=== PATIENT | female | born 1965 | race Caucasian/White ===

== ENCOUNTER 2022-01-13 08:20 | Observation (INO) ==
--- NOTE | 2022-01-13 08:50 | CT Scan Report ---
CT head/brain wo con CLINICAL HISTORY: 56 years-old Female with Stroke Alert. Acute strokelike symptoms TECHNIQUE: Multiple axial CT images of the head were obtained without contrast. A dose lowering tech nique was utilized adhering to the principles of ALARA. CT DOSE: 537.48 mGy.cm COMPARISON: Head CT 01/27/2008 FINDINGS: No acute intracranial hemorrhage, midline shift, intracranial mass, hydrocephalus, territorial ischem ia or abnormal extra-axial collection. Cerebral vascular calcifications. The calvarium is intact. The paranasal sinuses, mastoid air cells, and middle ear cavities are clear . IMPRESSION: No acute intracranial abnormality. ACT 112: Negative or not required by law. The above report was generated using voice recognition software. It may contain grammatical, syntax o r spelling errors. Electronically signed by: Klaus Coyne M.D. 01/13/2022 8:49 AM
[2022-01-13] MEDS ORDERED: OPTIRAY 320 125ml IV ONE (08:51)
[2022-01-13 09:13] LABS: Hematocrit (blood only) 37.3 % (37-47); Hemoglobin 12.4 g/dL (12.0-16.0); Mean Corpuscular Hemoglobin 30.2 pg (25-34); Mean Corpuscular Hgb Conc 33.2 g/dL (32-36); Mean Platelet Volume 10.7 fL (7.4-10.4); Platelet Count 253 K/uL (130-400); RDW Coefficient of Variation 13.8 % (11.5-14.5); RDW Standard Deviation 45.9 fL (36.4-46.3); White Blood Count 8.41 K/uL (4.8-10.8)
--- NOTE | 2022-01-13 09:16 | Emergency Department Note ---
Impression & Plan Left sided numbness, Stroke-like symptoms, Left arm weakness, Blurry vision ED Provider Note NAME: EZIO JAIME AGE: 56 SEX: F : 1965 ARRIVES VIA: Walk-In INFORMANT: [Patient][] ED PROVIDER(S): [Abimael Lizarraga MD] Patient first seen by me at 8:35 AM. CHIEF COMPLAINT: Stroke symptoms HISTORY OF PRESENT ILLNESS: The patient is a 56-year-old female who presents to the ED with complaints of strokelike symptoms. The patient was fine last night except for some charley horse cramping that she has had over the last few months. This morning, at around 6:30 AM, just over 2 hours ago, she noticed that her left eye vision was blurry when she tried to read. The patient did not notice any issues with her vision when she first woke up--the visual issue started a bit later in the morning. Nothing else bothered her. She felt her contact might be the issue. The patient went to work and around 65 minutes ago while sitting at her desk, she felt a popping sensation in her left ear and left eye. Her left eye vision went to 0 and then seemed to come back. Her left face, left arm and left leg felt weak and numb. She presents with her for evaluation. The patient believes that her symptoms involving the left face and left side of her body began at around 7:40 AM. There is no chest pain or shortness of breath. There is no abdominal pain. No headache or neck pain. The patient has never had a stroke. The patient has a history of high blood pressure and high cholesterol. She does take aspirin. No blood thinning medications. REVIEW OF SYSTEMS: See HPI for pertinent positives and negatives. A total of ten systems were reviewed and were otherwise negative. PMHx/PSHx: See Below SOCIAL HISTORY: See Below. PHYSICAL EXAM: GENERAL: Patient is in no acute distress. HEENT: No acute trauma, normocephalic atraumatic, mucous membranes moist, no nasal congestion, no scleral icterus. NECK: No stridor, no adenopathy, no meningismus, trachea is midline. LUNGS: Clear to auscultation bilaterally, no wheeze, no rhonchi, breath sounds equal. HEART: Without murmurs gallops or rubs, regular rate and rhythm. ABDOMEN: Soft, nontender, bowel sounds positive, no hernias, no peritonitis. EXTREMITIES: No cyanosis or edema, full range of motion of all the joints without pain or difficulty, no signs for acute trauma. NEUROLOGIC: Oriented x 3. There is no facial droop or speech slur. The patient's left hand grasp is weak. She has a difficult time lifting her left arm but, there is no left arm drift, no left leg drift. No cerebellar dysfunction. SKIN: No rash, no jaundice, no diaphoresis. DIFFERENTIAL DIAGNOSIS: Infection, dehydration, metabolic abnormality, hypo/hyperglycemia, electrolyte disturbance, anemia, hypoxia, cardiac sources, intracerebral event, toxicologic issues, stroke, TIA, as well as other pathologies. EMERGENCY DEPARTMENT COURSE/PROCEDURES: ECG: Indication was possible stroke. The ECG shows a normal sinus rhythm with a rate of 72. There is diffuse artifact. There is no ST elevation, no PVCs. The QTc is 451. Continuous Cardiac Monitoring: An order was placed for continuous cardiac monitoring. The monitor shows a rate of 77 with normal sinus rhythm. Critical Care Note: I have personally spent 46 minutes of critical care time in the direct management of this patient. This includes bedside care, interpretation of diagnostic studies, and testing, discussion with consultants, patient, and family members, and other required patient management activities. This 46 minutes is in excess of all separately billable procedures. MEDICAL DECISION MAKING: There is no leukocytosis or concerning anemia. There is a normal platelet count. No coagulopathy. No renal failure, no significant electrolyte abnormality. No concerning liver enzyme elevation. COVID test returned negative. Brain CT showed no acute bleed or mass-effect. CT angio of the head and neck were performed, no stenosis or clot seen. On exam, the patient's left hand grasp was weak. There was no arm drift, no speech slur or facial droop. Stroke scale as per nursing staff was 0. A stroke alert was called given her presentation and complaints. The patient was seen by the stroke neurologist. TNK was discussed but, the patient ultimately refused the medication. The patient does feel like she is improving. She has more strength in her left upper extremity. The left sided numbness is improving. As per the stroke neurologist recommendations, the patient was given 300 mg of oral Plavix. An MRI of the brain was ordered. The MRI did not show any acute findings, no findings of stroke. The cause for the patient's presentation is unclear. A small stroke is still must be considered. Sometimes, MRI findings show up days later. I spoke to the patient about her work-up and results, I did speak with the welfare case worker. The patient is in need of a hospital stay. The on-call hospitalist was consulted. Past Med/Surg History Medical History (Updated 01/13/22 @ 16:03 by Abimael Lizarraga MD) CAD (coronary artery disease) HLD (hyperlipidemia) HTN (hypertension) Hypothyroidism Surgical History History of History of colposcopy with cervical biopsy History of tonsillectomy and adenoidectomy Family History Grandmother , 90s, but had NH in her 40s Myocardial infarction Father Colon cancer Other HLD (hyperlipidemia) Social History Smoking Status: Former smoker Tobacco Type: Cigarettes Cigarettes Per Day: 5-6 cigarettes; Second Hand Exposure: No; Do You Dip or Chew Tobacco: No; Tobacco Cessation Education Requested by Patient: No Hx Alcohol Use: No Hx Substance Use: No Preferred Language: Sudanese Communication Ability: Effective Gear Technician Required: No Beliefs That Will Affect Care: None Current Living Situation: Family current occupational status: employed Other Information That Helps Us Care for You: No Feels Safe at Home: Yes Safety Concerns: Feels Safe At This Time Assistive Devices: None Allergies Allergies Allergy/AdvReac Type Severity Reaction Status Date / Time latex Allergy Severe swelling Verified 01/13/22 10:31 where ever it touches her codeine Allergy Mild UNKNOWN Verified 01/13/22 10:31 metoprolol Allergy Unknown Fluttering, Verified 01/13/22 10:31 slow respirations, dizziness and dry heaves. oxytocin Allergy Unknown Verified 01/13/22 10:31 Penicillins Allergy Unknown Verified 01/13/22 10:32 Sulfa (Sulfonamide Allergy Unknown . Verified 01/13/22 10:31 Antibiotics) ALL GENERIC MEDS Allergy Unknown LIPS Uncoded 01/13/22 10:31 TONGUE EDEMA Home Meds Home Medications Medication Instructions Recorded Confirmed isosorbide mononitrate 60 mg 60 mg PO QAM 07/19/18 01/13/22 tablet,extended release 24 hr levothyroxine 100 mcg tablet 100 mcg PO QAM 07/19/18 01/13/22 metoprolol succinate 25 mg 25 mg PO DAILY@1500 07/19/18 01/13/22 tablet,extended release 24 hr potassium chloride 10 mEq 30 meq PO DAILY@1500 07/19/18 01/13/22 capsule,extended release triamterene 37.5 1 cap PO DAILY 07/19/18 01/13/22 mg-hydrochlorothiazide 25 mg capsule aspirin 81 mg chewable tablet 162 mg PO DAILY 01/13/22 01/13/22 rosuvastatin 5 mg tablet 20 mg PO DAILY 01/13/22 01/13/22 tamoxifen 20 mg tablet 20 mg PO DAILY@199901/13/22 01/13/22 Results & Data (ED) Vital Signs Vital Signs - 24 hr 01/13/22 08:30 01/13/22 09:00 01/13/22 09:15 Temperature 36.6 C Temperature Source Temporal Artery Scan Pulse Rate 77 78 Pulse Rate [Apical] Pulse Rate from SpO2 Sensor 78 Respiratory Rate 18 20 Respiratory Effort / Characteristics Respiratory Depth Blood Pressure 167/109 H 150/101 H Blood Pressure [Left Arm] Blood Pressure Mean 128 117 Blood Pressure Mean [Left Arm] Pulse Oximetry 98 96 Oxygen Delivery Method Room Air Room Air Sepsis Recent Fever Within 48 Hours No Sepsis New/Unexplained Change in Mental Status No Sepsis Action Taken by Nursing No Action Required 01/13/22 09:30 01/13/22 09:45 01/13/22 09:50 Temperature Temperature Source Pulse Rate 74 72 77 Pulse Rate [Apical] Pulse Rate from SpO2 Sensor 74 74 79 Respiratory Rate 13 19 17 Respiratory Effort / Characteristics Respiratory Depth Blood Pressure 146/100 H Blood Pressure [Left Arm] Blood Pressure Mean 115 Blood Pressure Mean [Left Arm] Pulse Oximetry 95 96 95 Oxygen Delivery Method Room Air Sepsis Recent Fever Within 48 Hours Sepsis New/Unexplained Change in Mental Status Sepsis Action Taken by Nursing 01/13/22 09:59 01/13/22 10:00 01/13/22 10:10 Temperature Temperature Source Pulse Rate 73 74 70 Pulse Rate [Apical] 72 Pulse Rate from SpO2 Sensor 73 71 70 Respiratory Rate 18 18 20 Respiratory Effort / Characteristics Non-Labored Respiratory Depth Normal Blood Pressure 133/89 119/82 Blood Pressure [Left Arm] 133/89 Blood Pressure Mean 103 94 Blood Pressure Mean [Left Arm] 103 Pulse Oximetry 97 96 96 Oxygen Delivery Method Room Air Sepsis Recent Fever Within 48 Hours Sepsis New/Unexplained Change in Mental Status Sepsis Action Taken by Shelter Medications Current Medication List: was personally reviewed by me Laboratory Data Attestation: I reviewed the patient's lab results. Result diagrams: 01/13/22 09:00 01/13/22 09:00 Lab Results 01/13/22 01/13/22 01/13/22 Range/Units 09:00 09:00 09:00 WBC 8.41 (4.8-10.8) K/uL RBC 4.10 L (4.2-5.4) M/uL Hgb 12.4 (12.0-16.0) g/dL Hct 37.3 (37-47) % MCV 91.0 (80-100) fL MCH 30.2 (25-34) pg MCHC 33.2 (32-36) g/dL RDW Std Deviation 45.9 (36.4-46.3) fL RDW Coeff of Ted 13.8 (11.5-14.5) % Plt Count 253 (130-400) K/uL MPV 10.7 H (7.4-10.4) fL PT 10.9 (9.0-12.0) Seconds INR 1.0 (0.9-1.1) APTT 24.7 (21.0-31.0) Seconds PTT Ratio 0.9 Sodium 137 (136-145) mmol/L Potassium 3.9 (3.5-5.1) mmol/L Chloride 103 (98-107) mmol/L Carbon Dioxide 27 (21-32) mmol/L Anion Gap 7 (3-11) BUN 13 (6-23) mg/dl Creatinine 0.79 (0.6-1.2) mg/dl Est Cr Clr Drug Dosing 107.6 ml/min Est GFR ( Amer) 97.7 ml/min Est GFR (Non-Af Amer) 84.3 ml/min BUN/Creatinine Ratio 16.5 (10-20) Glucose 104 H (70-99(Fasting)) mg/dl Calcium 8.8 (8.5-10.1) mg/dl Magnesium 1.9 (1.7-2.4) mg/dl Total Bilirubin 0.4 (0.2-1.0) mg/dl AST 38 (13-39) U/L ALT 35 (7-52) U/L Alkaline Phosphatase 61 (34-104) U/L Total Protein 6.6 (6.0-8.3) gm/dl Albumin 3.5 (3.4-5.0) gm/dl Globulin 3.1 (2.5-4.0) gm/dl Albumin/Globulin Ratio 1.1 (0.9-2) SARS-CoV-2, RNA, NAAT (NEGATIVE) 01/13/22 Range/Units 09:08 WBC (4.8-10.8) K/uL RBC (4.2-5.4) M/uL Hgb (12.0-16.0) g/dL Hct (37-47) % MCV (80-100) fL MCH (25-34) pg MCHC (32-36) g/dL RDW Std Deviation (36.4-46.3) fL RDW Coeff of Ted (11.5-14.5) % Plt Count (130-400) K/uL MPV (7.4-10.4) fL PT (9.0-12.0) Seconds INR (0.9-1.1) APTT (21.0-31.0) Seconds PTT Ratio Sodium (136-145) mmol/L Potassium (3.5-5.1) mmol/L Chloride (98-107) mmol/L Carbon Dioxide (21-32) mmol/L Anion Gap (3-11) BUN (6-23) mg/dl Creatinine (0.6-1.2) mg/dl Est Cr Clr Drug Dosing ml/min Est GFR ( Amer) ml/min Est GFR (Non-Af Amer) ml/min BUN/Creatinine Ratio (10-20) Glucose (70-99(Fasting)) mg/dl Calcium (8.5-10.1) mg/dl Magnesium (1.7-2.4) mg/dl Total Bilirubin (0.2-1.0) mg/dl AST (13-39) U/L ALT (7-52) U/L Alkaline Phosphatase (34-104) U/L Total Protein (6.0-8.3) gm/dl Albumin (3.4-5.0) gm/dl Globulin (2.5-4.0) gm/dl Albumin/Globulin Ratio (0.9-2) SARS-CoV-2, RNA, NAAT NEGATIVE (NEGATIVE) Administered Medications Discontinued Medications Clopidogrel Bisulfate (Clopidogrel Bisulfate 300 Mg Tab) 300 mg PO NOW STA Stop: 01/13/22 10:00 Last Admin: 01/13/22 11:12 Dose: 300 mg Documented by: [id number] Ioversol (Optiray 320 125ml) 120 ml IV ONCE ONE Stop: 01/13/22 08:52 Last Admin: 01/13/22 08:52 Dose: 120 ml Documented by: [id number] Imaging Data Radiologist's Impression: Head CT 01/13/22 08:36 CT head/brain wo con CLINICAL HISTORY: 56 years-old Female with Stroke Alert. Acute strokelike symptoms TECHNIQUE: Multiple axial CT images of the head were obtained without contrast. A dose lowering technique was utilized adhering to the principles of ALARA. CT DOSE: 537.48 mGy.cm COMPARISON: Head CT 01/27/2008 FINDINGS: No acute intracranial hemorrhage, midline shift, intracranial mass, hydrocephalus, territorial ischemia or abnormal extra-axial collection. Cerebral vascular calcifications. The calvarium is intact. The paranasal sinuses, mastoid air cells, and middle ear cavities are clear. IMPRESSION: No acute intracranial abnormality. ACT 112: Negative or not required by law. The above report was generated using voice recognition software. It may contain grammatical, syntax or spelling errors. Electronically signed by: Klaus Coyne M.D. 01/13/2022 8:49 AM Head CTA 01/13/22 08:40 CT angio neck with con, CT angio head w con CLINICAL HISTORY: 56 years-old Female with stroke. Acute strokelike symptoms COMPARISON STUDY: Head CT of same day TECHNIQUE: Following the IV administration of 120 mL of Optiray, CT angiogram of the head and neck was performed from the aortic arch to the skull apex. Images are reviewed in the axial, sagittal, and coronal planes. 3-D MIPS images are created and assessed. IV contrast was administered without complication. All measurements were calculated based on NASCET criteria. A dose lowering technique was utilized adhering to the principles of ALARA. CT DOSE: 616.54 mGy.cm FINDINGS: Three-vessel morphology of the thoracic aortic arch. Patency of the innominate and imaged subclavian arteries. The common carotid arteries appear normal. The internal carotid arteries are patent. There is minimal atherosclerotic plaque of the cavernous and supraclinoid segments without significant stenosis. The anterior and middle cerebral arteries are patent. There is mild luminal narrowing in a right proximal M2 branch within the sylvian fissure on image 115 of series 3. The vertebral arteries are patent with mild atherosclerosis within the V4 segments. The basilar and posterior cerebral arteries are patent. The cerebral venous sinuses are patent. There is no abnormal intracranial enhancement. The lung apices are clear. No pneumothorax. Unremarkable soft tissues. No acute fracture. Degenerative changes of the cervical spine. IMPRESSION:Unremarkable CTA of the head and neck. ACT 112: Negative or not required by law. The above report was generated using voice recognition software. It may contain grammatical, syntax or spelling errors. Electronically signed by: Klaus Coyne M.D. 01/13/2022 9:27 AM Neck CTA 01/13/22 08:40 CT angio neck with con, CT angio head w con CLINICAL HISTORY: 56 years-old Female with stroke. Acute strokelike symptoms COMPARISON STUDY: Head CT of same day TECHNIQUE: Following the IV administration of 120 mL of Optiray, CT angiogram of the head and neck was performed from the aortic arch to the skull apex. Images are reviewed in the axial, sagittal, and coronal planes. 3-D MIPS images are created and assessed. IV contrast was administered without complication. All measurements were calculated based on NASCET criteria. A dose lowering technique was utilized adhering to the principles of ALARA. CT DOSE: 616.54 mGy.cm FINDINGS: Three-vessel morphology of the thoracic aortic arch. Patency of the innominate and imaged subclavian arteries. The common carotid arteries appear normal. The internal carotid arteries are patent. There is minimal atherosclerotic plaque of the cavernous and supraclinoid segments without significant stenosis. The anterior and middle cerebral arteries are patent. There is mild luminal narrowing in a right proximal M2 branch within the sylvian fissure on image 115 of series 3. The vertebral arteries are patent with mild atherosclerosis within the V4 segments. The basilar and posterior cerebral arteries are patent. The cerebral venous sinuses are patent. There is no abnormal intracranial enhancem ent. The lung apices are clear. No pneumothorax. Unremarkable soft tissues. No acute fracture. Degenerative changes of the cervical spine. IMPRESSION:Unremarkable CTA of the head and neck. ACT 112: Negative or not required by law. The above report was generated using voice recognition software. It may contain grammatical, syntax or spelling errors. Electronically signed by: Klaus Coyne M.D. 01/13/2022 9:27 AM Brain MRI 01/13/22 09:59 MRI OF THE BRAIN WITHOUT CONTRAST CLINICAL HISTORY: Stroke symptoms. COMPARISON STUDY: Head CT and CTA of the head performed earlier today. TECHNIQUE: Utilizing a 1.5 Chrissy magnet and dedicated coil, multiplanar, multiecho imaging of the brain was performed without IV contrast. FINDINGS: There are no foci of restricted diffusion to suggest acute infarct. No acute intracranial midline shift or mass effect is present. Brain findings normal. Ventricular system is normal. Basal cisterns are patent. There are no extra-axial collections. A few small white matter T2 hyperintense foci are noted. No intracranial masses identified on this unenhanced exam. Orbits are unremarkable on this unenhanced study. No evidence for sinusitis. There is no mastoid fluid. IMPRESSION: No acute intracranial findings. ACT 112: Negative or not required by law. Electronically signed by: Julian Abernathy M.D. 01/13/2022 11:03 AM Discharge Plan Visit Data Chief Complaint: Neuro Symptoms/Deficit Stated Complaint: RT SIDE FEELS "WEIRD" ED Provider: Abimael Lizarraga Discharge Problem: Left sided numbness, Stroke-like symptoms, Left arm weakness, Blurry vision Patient Disposition: Admitted As Inpatient Condition: Fair Discharge Instructions Interventions: ED Discharge Assessment Last Done: 01/13/22 11:44
[2022-01-13 09:23] LABS: Partial Thromboplastin Ratio 0.9; Partial Thromboplastin Time 24.7 Seconds (21.0-31.0); Prothrombin Time 10.9 Seconds (9.0-12.0)
--- NOTE | 2022-01-13 09:29 | CT Scan Report ---
CT angio neck with con, CT angio head w con CLINICAL HISTORY: 56 years-old Female with stroke. Acute strokelike symptoms COMPARISON STUDY: Head CT of same day TECHNIQUE: Following the IV administration of 120 mL of Optiray, CT angiogram of the head and neck wa s performed from the aortic arch to the skull apex. Images are reviewed in the axial, sagittal, and c oronal planes. 3-D MIPS images are created and assessed. IV contrast was administered without complic ation. All measurements were calculated based on NASCET criteria. A dose lowering technique was util ized adhering to the principles of ALARA. CT DOSE: 616.54 mGy.cm FINDINGS: Three-vessel morphology of the thoracic aortic arch. Patency of the innominate and imaged subclavian arteries. The common carotid arteries appear normal. The internal carotid arteries are patent. There is minimal atherosclerotic plaque of the cavernous and supraclinoid segments without significant sten osis. The anterior and middle cerebral arteries are patent. There is mild luminal narrowing in a righ t proximal M2 branch within the sylvian fissure on image 115 of series 3. The vertebral arteries are patent with mild atherosclerosis within the V4 segments. The basilar and posterior cerebral arteries are patent. The cerebral venous sinuses are patent. There is no abnormal intracranial enhancement. The lung apices are clear. No pneumothorax. Unremarkable soft tissues. No acute fracture. Degenerativ e changes of the cervical spine. IMPRESSION:Unremarkable CTA of the head and neck. ACT 112: Negative or not required by law. The above report was generated using voice recognition software. It may contain grammatical, syntax o r spelling errors. Electronically signed by: Klaus Coyne M.D. 01/13/2022 9:27 AM
[2022-01-13 09:38] LABS: Albumin Globulin Ratio 1.1 (0.9-2); Albumin Level 3.5 gm/dl (3.4-5.0); BUN Creatinine Ratio 16.5 (10-20); Bilirubin,Total 0.4 mg/dl (0.2-1.0); Calcium 8.8 mg/dl (8.5-10.1); Creatinine Clr Calc Pharmacy 107.6 ml/min; Est GFR (African American) 97.7 ml/min; Est GFR (Non-African American) 84.3 ml/min; Globulin 3.1 gm/dl (2.5-4.0); Magnesium 1.9 mg/dl (1.7-2.4); Potassium 3.9 mmol/L (3.5-5.1); Total Protein 6.6 gm/dl (6.0-8.3)
[2022-01-13] MEDS ORDERED: CLOPIDOGREL BISULFATE 300 MG TAB PO STA (09:59)
--- NOTE | 2022-01-13 10:41 | History & Physical Report ---
Date of Service January 13, 2022 Assessment & Plan (1) Stroke-like symptom: (2) Transient visual loss, left eye: (3) CAD (coronary artery disease): (4) HTN (hypertension): (5) HLD (hyperlipidemia): Plan: This is a 56-year-old female who has significant past medical history of CAD, HTN, HLD, hypothyroidism, recent dx of atypical ductal hyperplasia of breast s/p lumpectomy and sentinel node bx now on tamoxifen who presents to ED secondary to left eye visual symptoms that began at 6:30 AM. Strokelike symptoms - numbness to L arm/leg, face and visual sx Transient visual loss of left eye Left eye blurred vision admit to PCU sx have resolved except for L blurred vision and L facial numbness received 300mg plavix in ED, also took home dose of 162mg ASA continue ASA for now, await further neuro recs continue statin consult neuro MRI negative for acute CVA obtain echo a1c, lipid panel pt/ot/st CAD HTN HLD no CP or SOB continue asa, statin, metoprolol, imdur and triamterene/hctz monitor BP Recent dx stage 1 breast ca on R s/p partial mastectomy has been on tamoxifen since August Dvt ppx: SCD/TEDS for now, consider chemical prophylaxis in am if continued hospitalization warranted Dispo: PCU FULL CODE PCP: Ramandeep Sow PA-C Pt was seen and examined in collaboration with Dr. Johnston, please see addendum History of Present Illness Chief Complaint: L eye visual symptoms since 630 a.m. Primary Care Provider: Tona Lomeli PA-C This is a 56-year-old female who has significant past medical history of CAD, HTN, HLD, hypothyroidism, recent dx of atypical ductal hyperplasia of breast s/p lumpectomy and sentinel node bx now on tamoxifen who presents to ED secondary to left eye visual symptoms that began at 6:30 AM. At approximately 630 this morning when patient woke up she noticed she had blurry vision in her left eye. She thought maybe something was wrong with her contact. She proceeded to go to work and at approximately 7 48-7 40 5 AM she felt a popping sensation in her left ear and left eye and had a transient loss of vision in her left eye and then came back. She described it as, "it went black." She also noted numbness and weakness to the left side of her face, left arm and left leg. She presented to ED approximately 2 hours since symptom onset. Her initial head CT was negative for acute abnormality. A telestroke alert was obtained. Due to patient symptom onset as well as improvement of symptoms the risks and benefits of TNK was offered to the patient. Telemetry neurologist recommended TN K since under 4 and half hours; patient declined. Patient's head and neck CTA was unremarkable. She did undergo brain MRI which revealed no acute intracranial findings. A few small white matter T2 hyperintense foci were noted. In ED patient was loaded with Plavix 300 mg x1 due to her already taking a baby aspirin daily. She was evaluated post MRI in room 206-1. She states her LUE and LLE numbness have resolved but she continues to have numbness to L face. She also complains of blurry vision to L eye. She has removed her contacts. SHe denies any recent illness. She did go to chiropractor on Tuesday. She also was recently started on tamoxifen in August. She denies f/c/s, chest pain, sob, uri sx, cough, n/v/d, abd pain, dizziness, lightheaded, loss of bowel/bladder, change in bowel or urinary habits. She denies change in speech or facial droop or DIAZ. Of note her cardiac history consists of NSTEMI in 2014 during hospitalization for pneumonia. At that time her echocardiogram was normal without regional wall motion abnormality and initially treated conservatively with medications. After resolution of the pneumonia ischemic workup was pursued including cardiac cath by Dr. Yates in 05/2015 demonstrating 100% chronic obtuse marginal 2 stenosis. PCI was attempted but not successful due to the calcified nature of lesion and continued to be treated medically in the interim. Further she underwent exercise stress echocardiogram November 2017 secondary to palpitations and decreased exercise tolerance. It was negative for inducible ischemia after achieving workload of 8 minutes and 40 seconds per Davis protocol. Her last stress echo was in June 2018 which was negative for inducible ischemia. Allergies Allergy/AdvReac Type Severity Reaction Status Date / Time latex Allergy Severe swelling Verified 01/13/22 10:31 where ever it touches her codeine Allergy Mild UNKNOWN Verified 01/13/22 10:31 metoprolol Allergy Unknown Fluttering, Verified 01/13/22 10:31 slow respirations, dizziness and dry heaves. oxytocin Allergy Unknown Verified 01/13/22 10:31 Penicillins Allergy Unknown Verified 01/13/22 10:32 Sulfa (Sulfonamide Allergy Unknown . Verified 01/13/22 10:31 Antibiotics) ALL GENERIC MEDS Allergy Unknown LIPS Uncoded 01/13/22 10:31 TONGUE EDEMA Home Medications Medication Instructions Recorded Confirmed Type isosorbide mononitrate 60 mg 60 mg PO QAM 07/19/18 01/13/22 History tablet,extended release 24 hr levothyroxine 100 mcg tablet 100 mcg PO QAM 07/19/18 01/13/22 History metoprolol succinate 25 mg 25 mg PO DAILY@1500 07/19/18 01/13/22 History tablet,extended release 24 hr potassium chloride 10 mEq 30 meq PO DAILY@1500 07/19/18 01/13/22 History capsule,extended release triamterene 37.5 1 cap PO DAILY 07/19/18 01/13/22 History mg-hydrochlorothiazide 25 mg capsule aspirin 81 mg chewable tablet 162 mg PO DAILY 01/13/22 01/13/22 History rosuvastatin 5 mg tablet 20 mg PO DAILY 01/13/22 01/13/22 History tamoxifen 20 mg tablet 20 mg PO DAILY@199901/13/22 01/13/22 History Past Med/Surg History Medical History (Updated 01/13/22 @ 12:17 by Laurie Valenzuela PA-C) CAD (coronary artery disease) HLD (hyperlipidemia) HTN (hypertension) Hypothyroidism Surgical History History of History of colposcopy with cervical biopsy History of tonsillectomy and adenoidectomy Family History Grandmother , 90s, but had GA in her 40s Myocardial infarction Father Colon cancer Other HLD (hyperlipidemia) Social History Smoking Status: Former smoker Tobacco Type: Cigarettes Cigarettes Per Day: 5-6 cigarettes; Second Hand Exposure: No; Hx Alcohol Use: No Hx Substance Use: No Preferred Language: Yoruba Communication Ability: Effective 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 Johnston addendum for physical exam findings Results & Data Results & Data ([facility]) Vital Signs (Past 12 Hours) Vital Signs Temp Pulse Pulse Resp BP BP Pulse Ox 01/13/22 09:59 72 18 133/89 96 01/13/22 09:45 72 19 146/100 H 96 01/13/22 09:30 74 13 95 01/13/22 09:15 78 20 150/101 H 96 01/13/22 08:30 36.6 C 77 18 167/109 H [address] 01/13/22 08:36 CT head/brain wo con CLINICAL HISTORY: 56 years-old Female with Stroke Alert. Acute strokelike symptoms TECHNIQUE: Multiple axial CT images of the head were obtained without contrast. A dose lowering technique was utilized adhering to the principles of ALARA. CT DOSE: 537.48 mGy.cm COMPARISON: Head CT 01/27/2008 FINDINGS: No acute intracranial hemorrhage, midline shift, intracranial mass, hydrocephalus, territorial ischemia or abnormal extra-axial collection. Cerebral vascular calcifications. The calvarium is intact. The paranasal sinuses, mastoid air cells, and middle ear cavities are clear. IMPRESSION: No acute intracranial abnormality. ACT 112: Negative or not required by law. The above report was generated using voice recognition software. It may contain grammatical, syntax or spelling errors. Electronically signed by: Klaus Coyne M.D. 01/13/2022 8:49 AM Head CTA 01/13/22 08:40 CT angio neck with con, CT angio head w con CLINICAL HISTORY: 56 years-old Female with stroke. Acute strokelike symptoms COMPARISON STUDY: Head CT of same day TECHNIQUE: Following the IV administration of 120 mL of Optiray, CT angiogram of the head and neck was performed from the aortic arch to the skull apex. Images are reviewed in the axial, sagittal, and coronal planes. 3-D MIPS images are created and assessed. IV contrast was administered without complication. All measurements were calculated based on NASCET criteria. A dose lowering technique was utilized adhering to the principles of ALARA. CT DOSE: 616.54 mGy.cm FINDINGS: Three-vessel morphology of the thoracic aortic arch. Patency of the innominate and imaged subclavian arteries. The common carotid arteries appear normal. The internal carotid arteries are patent. There is minimal atherosclerotic plaque of the cavernous and supraclinoid segments without significant stenosis. The anterior and middle cerebral arteries are patent. There is mild luminal narrowing in a right proximal M2 branch within the sylvian fissure on image 115 of series 3. The vertebral arteries are patent with mild atherosclerosis within the V4 segments. The basilar and posterior cerebral arteries are patent. The cerebral venous sinuses are patent. There is no abnormal intracranial enhancement. The lung apices are clear. No pneumothorax. Unremarkable soft tissues. No acute fracture. Degenerative changes of the cervical spine. IMPRESSION:Unremarkable CTA of the head and neck. ACT 112: Negative or not required by law. The above report was generated using voice recognition software. It may contain grammatical, syntax or spelling errors. Electronically signed by: Klaus Coyne M.D. 01/13/2022 9:27 AM Neck CTA 01/13/22 08:40 CT angio neck with con, CT angio head w con CLINICAL HISTORY: 56 years-old Female with stroke. Acute strokelike symptoms COMPARISON STUDY: Head CT of same day TECHNIQUE: Following the IV administration of 120 mL of Optiray, CT angiogram of the head and neck was performed from the aortic arch to the skull apex. Images are reviewed in the axial, sagittal, and coronal planes. 3-D MIPS images are created and assessed. IV contrast was administered without complication. All measurements were calculated based on NASCET criteria. A dose lowering technique was utilized adhering to the principles of ALARA. CT DOSE: 616.54 mGy.cm FINDINGS: Three-vessel morphology of the thoracic aortic arch. Patency of the innominate and imaged subclavian arteries. The common carotid arteries appear normal. The internal carotid arteries are patent. There is minimal atherosclerotic plaque of the cavernous and supraclinoid segments without significant stenosis. The anterior and middle cerebral arteries are patent. There is mild luminal narrowing in a right proximal M2 branch within the sylvian fissure on image 115 of series 3. The vertebral arteries are patent with mild atherosclerosis within the V4 segments. The basilar and posterior cerebral arteries are patent. The cerebral venous sinuses are patent. There is no abnormal intracranial enhancement. The lung apices are clear. No pneumothorax. Unremarkable soft tissues. No acute fracture. Degenerative changes of the cervical spine. IMPRESSION:Unremarkable CTA of the head and neck. ACT 112: Negative or not required by law. The above report was generated using voice recognition software. It may contain grammatical, syntax or spelling errors. Electronically signed by: Klaus Coyne M.D. 01/13/2022 9:27 AM Brain MRI 01/13/22 09:59 MRI OF THE BRAIN WITHOUT CONTRAST CLINICAL HISTORY: Stroke symptoms. COMPARISON STUDY: Head CT and CTA of the head performed earlier today. TECHNIQUE: Utilizing a 1.5 Chrissy magnet and dedicated coil, multiplanar, multiecho imaging of the brain was performed without IV contrast. FINDINGS: There are no foci of restricted diffusion to suggest acute infarct. No acute intracranial midline shift or mass effect is present. Brain findings normal. Ventricular system is normal. Basal cisterns are patent. There are no extra-axial collections. A few small white matter T2 hyperintense foci are noted. No intracranial masses identified on this unenhanced exam. Orbits are unremarkable on this unenhanced study. No evidence for sinusitis. There is no mastoid fluid. IMPRESSION: No acute intracranial findings. ACT 112: Negative or not required by law. Electronically signed by: Julian Abernathy M.D. 01/13/2022 11:03 AM Medications Administered Medication List Discontinued Medications Ioversol (Optiray 320 125ml) 120 ml IV ONCE ONE Stop: 01/13/22 08:52 Last Admin: 01/13/22 08:52 Dose: 120 ml Documented by: [id number] ECG Rate (beats per minute): 72 Rhythm: normal sinus COVID-19 Results Results COVID-19 Adm Lab Results: RBC 4.10 M/uL (4.2-5.4) L 01/13/22 WBC 8.41 K/uL (4.8-10.8) 01/13/22 Hgb 12.4 g/dL (12.0-16.0) 01/13/22 Hct 37.3 % (37-47) 01/13/22 Plt Count 253 K/uL (130-400) 01/13/22 Na 137 mmol/L (136-145) 01/13/22 K 3.9 mmol/L (3.5-5.1) 01/13/22 Cl 103 mmol/L (98-107) 01/13/22 CO2 27 mmol/L (21-32) 01/13/22 Anion Gap 7 (3-11) 01/13/22 BUN 13 mg/dl (6-23) 01/13/22 Creatinine 0.79 mg/dl (0.6-1.2) 01/13/22 BUN/Creatinine Ratio 16.5 (10-20) 01/13/22 Glucose Level 104 mg/dl (70-99(Fasting)) H 01/13/22 Ca 8.8 mg/dl (8.5-10.1) 01/13/22 Total Bilirubin 0.4 mg/dl (0.2-1.0) 01/13/22 AST/SGOT 38 U/L (13-39) 01/13/22 ALT/SGPT 35 U/L (7-52) 01/13/22 Alkaline Phosphatase 61 U/L (34-104) 01/13/22 Total Protein 6.6 gm/dl (6.0-8.3) 01/13/22 Albumin 3.5 gm/dl (3.4-5.0) 01/13/22 Globulin 3.1 gm/dl (2.5-4.0) 01/13/22 Albumin/Globulin Ratio 1.1 (0.9-2) 01/13/22 PTT 24.7 Seconds (21.0-31.0) 01/13/22 INR 1.0 (0.9-1.1) 01/13/22 SARS-CoV-2, RNA, NAAT NEGATIVE (NEGATIVE) 01/13/22 Code Status & VTE Plan Code Status FULL CODE VTE Prophylaxis Plan VTE Prophylaxis will be ordered: Yes Supervising Physician Co-Signing Physician Notes History and physical exam performed by me. History notable for 56-year-old woman with history of CAD, hypertension, hypothyroidism, atypical ductal hyperplasia left breast status postlumpectomy and sentinel node biopsy on tamoxifen who presented with Visual impairment of the left eye. But that this started this morning and worsened at work associated with left- sided body numbness and weakness. Reports that symptoms are improving left body numbness and weakness is currently resolved except for some numbness on the left side of the face and blurry vision in the left eye Reports she recently visited her chiropractor which is routine Physical exam, General: Well nourished, well hydrated, +obese, no acute distress and not ill appearing Eyes: PERRL, conjunctivae normal, not pale, anicteric sclerae, EOM intact bilaterally ENMT: External ear and nose normal, oropharynx normal Respiratory: Normal respiratory effort, no respiratory distress, lungs clear to auscultation, no crackles and no wheezes Cardiovascular: RRR S1 S2. No pedal edema. Gastrointestinal (Abdomen): Abdomen is not distended, soft, non-tender to palpation, no guarding, no palpable hepatosplenomegaly, normal bowel sounds Musculoskeletal: No cyanosis or clubbing, Neurologic: PERRL, EOMI, No focal weakness, Power is equal on both sides in all extremities, Reported sensation on left face feels abnormal (dysesthesia) Psychiatric: Alert and oriented x 3, euthymic affect Lab work is grossly unremarkable CT head was negative for any acute abnormality CT angio head and neck were unremarkable MRI brain did not show any acute findings. 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 Continue aspirin Follow-up neurology evaluation and recommendations If visual problem persists, may consider ophthalmology evaluation Agree with other plans as detailed by Laurie Valenzuela PA-C (1) CAD (coronary artery disease) Associated angina: angina presence unspecified Coronary Disease-Associated Artery/Lesion type: [place] artery [place] vs. transplanted heart: [place] heart Qualified Code(s): I25.10 - Atherosclerotic heart disease of [place] coronary artery without angina pectoris (2) HTN (hypertension) Hypertension type: essential hypertension Qualified Code(s): I10 - Essential (primary) hypertension
--- NOTE | 2022-01-13 11:04 | Magnetic Resonance Report ---
MRI OF THE BRAIN WITHOUT CONTRAST CLINICAL HISTORY: Stroke symptoms. COMPARISON STUDY: Head CT and CTA of the head performed earlier today. TECHNIQUE: Utilizing a 1.5 Chrissy magnet and dedicated coil, multiplanar, multiecho imaging of the bra in was performed without IV contrast. FINDINGS: There are no foci of restricted diffusion to suggest acute infarct. No acute intracranial m idline shift or mass effect is present. Brain findings normal. Ventricular system is normal. Basal ci sterns are patent. There are no extra-axial collections. A few small white matter T2 hyperintense foc i are noted. No intracranial masses identified on this unenhanced exam. Orbits are unremarkable on th is unenhanced study. No evidence for sinusitis. There is no mastoid fluid. IMPRESSION: No acute intracranial findings. ACT 112: Negative or not required by law. Electronically signed by: Julian Abernathy M.D. 01/13/2022 11:03 AM
--- NOTE | 2022-01-13 11:58 | Neurology Consultation ---
Date of Consultation January 13, 2022 Assessment & Plan (1) Stroke-like symptom: 1. MRI negative for stroke 2. CTA head/neck- no acute findings 3. PT/OT speech for discharge needs 4. Plavix 75 mg and aspirin 81 mg daily for 21 days then stop aspirin and continue aspirin 162 mg for life 5. TTE if not already done 6. optimize HTN, HLD, DM LDL <70 follow up with neurology as outpatient 4-6 weeks (2) HTN (hypertension): Supervising Physician Co-Signing Physician Notes Patient was seen and examined. Symptoms improved. Noting spread of numbness on the left side of her face down the arm and to the leg. Most of the numbness has improved. Also noted left eye vision loss and blurred vision. Had popping in ear and temperature changes. MRI and CTA reviewed. No evidence of acute stroke. Symptoms not consistent with stroke or TIA. Possible acephalic visual and sensory aura. No prior history of migraines. Can give dose of Magnesium 1000 mg IV if symptoms continue. Otherwise ok to discharge from Neuro standpoint. Follow up with Neuro PRN. If symptoms reoccur may be supportive of an aura. 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 At approximately 630 this morning she woke up she noticed she had blurry vision in her left eye. She thought maybe something was wrong with her contact. She proceeded to go to work and at approximately 7 48-7 40 5 AM she felt a popping sensation in her left ear and left eye and had a transient loss of vision in her left eye and then came back. She also noted numbness and weakness to the left side of her face, left arm and left leg.Her initial head CT was negative for acute abnormality. Due to patient symptom onset as well as improvement of symptoms the risks and benefits of TNK was offered to the patient. Telemetry neurologist recommended TN K since under 4 and half hours; patient declined.Her head and neck CTA was unremarkable. She did undergo brain MRI which revealed no acute intracranial findings. A few small white matter T2 hyperintense foci were noted.She was loaded with plavix 300 mg and started on aspirin 81 mg She had a NSTEMI in 2014 during hospitalization for pneumonia. At that time her echocardiogram was normal without regional wall motion abnormality and initially treated conservatively with medications. After resolution of the pneumonia ischemic workup was pursued including cardiac cath by Dr. Yates in 05/2015 demonstrating 100% chronic obtuse marginal 2 stenosis. PCI was attempted but not successful due to the calcified nature of lesion and continued to be treated medically in the [facility].She also underwent exercise stress echocardiogram November 2017 secondary to palpitations and decreased exercise tolerance. Her last stress echo was in June 2018 which was negative for inducible ischemia. She has residual left face numbness and a weird sensation when she looks to the left but not stabling pain or vision loss. denies CP, SOB, abdominal pain, one sided weakness, N, V. Allergies Allergy/AdvReac Type Severity Reaction Status Date / Time latex Allergy Severe swelling Verified 01/13/22 10:31 where ever it touches her codeine Allergy Mild UNKNOWN Verified 01/13/22 10:31 metoprolol Allergy Unknown Fluttering, Verified 01/13/22 10:31 slow respirations, dizziness and dry heaves. oxytocin Allergy Unknown Verified 01/13/22 10:31 Penicillins Allergy Unknown Verified 01/13/22 10:32 Sulfa (Sulfonamide Allergy Unknown . Verified 01/13/22 10:31 Antibiotics) ALL GENERIC MEDS Allergy Unknown LIPS Uncoded 01/13/22 10:31 TONGUE EDEMA Home Medications Medication Instructions Recorded Confirmed Type isosorbide mononitrate 60 mg 60 mg PO QAM 07/19/18 01/13/22 History tablet,extended release 24 hr levothyroxine 100 mcg tablet 100 mcg PO QAM 07/19/18 01/13/22 History metoprolol succinate 25 mg 25 mg PO DAILY@1500 07/19/18 01/13/22 History tablet,extended release 24 hr potassium chloride 10 mEq 30 meq PO DAILY@1500 07/19/18 01/13/22 History capsule,extended release triamterene 37.5 1 cap PO DAILY 07/19/18 01/13/22 History mg-hydrochlorothiazide 25 mg capsule aspirin 81 mg chewable tablet 162 mg PO DAILY 01/13/22 01/13/22 History rosuvastatin 5 mg tablet 20 mg PO DAILY 01/13/22 01/13/22 History tamoxifen 20 mg tablet 20 mg PO DAILY@199901/13/22 01/13/22 History Patient History Medical History (Updated 01/13/22 @ 16:03 by Abimael Lizarraga MD) CAD (coronary artery disease) HLD (hyperlipidemia) HTN (hypertension) Hypothyroidism Surgical History History of History of colposcopy with cervical biopsy History of tonsillectomy and adenoidectomy Family History Grandmother , 90s, but had CA in her 40s Myocardial infarction Father Colon cancer Other HLD (hyperlipidemia) Social History Smoking Status: Former smoker Tobacco Type: Cigarettes Cigarettes Per Day: 5-6 cigarettes; Second Hand Exposure: No; Do You Dip or Chew Tobacco: No; Tobacco Cessation Education Requested by Patient: No Hx Alcohol Use: No Hx Substance Use: No Preferred Language: Singaporean Communication Ability: Effective [employer] Supervisor Required: No Beliefs That Will Affect Care: None Current Living Situation: Family current occupational status: employed Other Information That Helps Us Care for You: No Feels Safe at Home: Yes Safety Concerns: Feels Safe At This Time Assistive Devices: None Review of Systems Review of Systems: All systems reviewed & are unremarkable except as noted in HPI & below Physical Exam Physical Exam: Physical Exam: Constitutional: appearance over nourished Ears, Nose, Mouth and Throat: mucous membranes moist, no injection and skin normal, eyes normal Cardiovascular: normal S-1 and S-2 and regular rate and rhythm Respiratory: course breath sounds Musculoskeletal: no peripheral edema and good distal pulses Skin: no stigmata of neurocutaneous disease noted and normal and intact Eyes: extraocular muscles intact (EOMI) and pupils equal, round and reactive to light (PERRL) NEUROLOGIC EXAMINATION: Mental status: Alert and interactive Oriented to full date and location Oriented to person Speech fluent with no evidence of aphasia Cranial Nerves smile and eye brow symmetric Reflexes: Deep tendon reflexes were symmetrical and graded 2/5 Sensory: vibration and light cool touch intact. except face on left less sensitive to touch from mid forehead to left and cheek Coordination: Romberg absent Gait/Stance: Posture normal. Gait normal: with steady with steps, base, turning, and tandem gait. Motor: Negative for pronator drift of out stretched arms with eyes closed. Strength: hand longwall headgate operator biceps triceps deltoids 5/5 bilaterally hip flex 5/5 Results & Data ([facility]) Vital Signs (Past 12 Hours) Vital Signs Temp Pulse Pulse Resp BP BP Pulse Ox 01/13/22 10:20 74 18 98 01/13/22 10:10 70 20 96 01/13/22 10:00 74 18 119/82 96 01/13/22 09:59 73 72 18 133/89 133/89 97 01/13/22 09:50 77 17 95 01/13/22 09:45 72 19 146/100 H 96 01/13/22 09:30 74 13 95 01/13/22 09:15 78 20 150/101 H 96 01/13/22 08:30 36.6 C 77 18 167/109 H 98 Laboratory Results Abnormal lab results 01/13/22 01/13/22 Range/Units 09:00 09:00 RBC 4.10 L (4.2-5.4) M/uL MPV 10.7 H (7.4-10.4) fL Glucose 104 H (70-99(Fasting)) mg/dl Diagnostic Findings CT head-No acute intracranial abnormality. CTA head/neck-Unremarkable CTA of the head and neck. MRI brain-There are no foci of restricted diffusion to suggest acute infarct. No acute intracranial midline shift or mass effect is present. Brain findings normal. Ventricular system is normal. Basal cisterns are patent. There are no extra-axial collections. A few small white matter T2 hyperintense foci are no betty. No intracranial masses identified on this unenhanced exam. Orbits are unremarkable on this unenhanced study. No evidence for sinusitis. There is no mastoid fluid. (1) HTN (hypertension) Hypertension type: essential hypertension Qualified Code(s): I10 - Essential (primary) hypertension
[2022-01-13] MEDS ORDERED: ALUMINUM/MAGNESIUM SUSP 30 ML UDC PO PRN (12:37)
[2022-01-13] MEDS ORDERED: POLYETHYLENE (MIRALAX) 17 GM PACK PO PRN (12:37)
[2022-01-13] MEDS ORDERED: ONDANSETRON INJ 2 MG/ML 2 ML VIAL IV PRN (12:37)
[2022-01-13] MEDS ORDERED: PHARMACIST DISCHARGE MED REC CONSULT PRN (12:37)
[2022-01-13] MEDS ORDERED: MAGNESIUM HYDROXIDE SUSP 30 ML UDC PO PRN (12:37)
[2022-01-13] MEDS ORDERED: ACETAMINOPHEN 325 MG TAB PO PRN (12:37)
--- NOTE | 2022-01-13 14:57 | Electrocardiogram Report ---
Test Reason : Blood Pressure : / mmHG Vent. Rate : 072 BPM Atrial Rate : 072 BPM P-R Int : 148 ms QRS Dur : 074 ms QT Int : 412 ms P-R-T Axes : 040 -03 005 degrees QTc Int : 451 ms Poor data quality, interpretation may be adversely affected Normal sinus rhythm Low voltage QRS Cannot rule out Anterior infarct (cited on or before 19-JUL-2018) Abnormal ECG When compared with ECG of 19-JUL-2018 10:25, No significant change was found Confirmed by Terrence Mcmahon ([id number]) on 01/13/2022 2:57:45 PM Referred By: REFERRED SELF Confirmed By:Irineo Mcmahon
[2022-01-13] MEDS ORDERED: POTASSIUM CHLORIDE 10 MEQ TABCR PO SCH ×2 (15:00→16:45)
[2022-01-13] MEDS ORDERED: METOPROLOL SUCC 25MG EXT REL TAB PO SCH ×2 (15:00→16:45)
[2022-01-13] MEDS ORDERED: TAMOXIFEN CITRATE 10 MG TABLET PO SCH (20:00)
[2022-01-13] MEDS ORDERED: TAMOXIFEN 20 MG PO SCH (20:00)
[2022-01-14] MEDS ORDERED: LEVOTHYROXINE SODIUM 50 MCG TABLET PO SCH (06:30)
[2022-01-14 06:49] LABS: Basophils # (auto) 0.04 K/uL (0-0.2); Basophils % (auto) 0.4 %; Eosinophils # (auto) 0.45 K/uL (0-0.5); Hematocrit (blood only) 39.3 % (37-47); Hemoglobin 12.7 g/dL (12.0-16.0); Immature Granulocytes # (auto) 0.04 K/uL (0.00-0.02); Immature Granulocytes % (auto) 0.4 %; Lymphocytes # (auto) 3.25 K/uL (1.2-3.4); Lymphocytes % (auto) 36.1 %; Mean Corpuscular Hemoglobin 29.1 pg (25-34); Mean Corpuscular Hgb Conc 32.3 g/dL (32-36); Mean Corpuscular Volume 89.9 fL (80-100); Mean Platelet Volume 10.6 fL (7.4-10.4); Monocytes # (auto) 0.52 K/uL (0.11-0.59); Monocytes % (auto) 5.8 %; Neutrophils # (auto) 4.71 K/uL (1.4-6.5); Neutrophils % (auto) 52.3 %; Platelet Count 267 K/uL (130-400); RDW Coefficient of Variation 13.9 % (11.5-14.5); RDW Standard Deviation 45.6 fL (36.4-46.3); Red Blood Count 4.37 M/uL (4.2-5.4); White Blood Count 9.01 K/uL (4.8-10.8)
[2022-01-14 07:10] LABS: BUN Creatinine Ratio 16.2 (10-20); Calcium 8.9 mg/dl (8.5-10.1); Chol HDL Ratio 3.3 (0-5); Creatinine Clr Calc Pharmacy 114.7 ml/min; Est GFR (African American) 105.7 ml/min; Est GFR (Non-African American) 91.2 ml/min; Potassium 3.9 mmol/L (3.5-5.1)
[2022-01-14] MEDS ORDERED: ROSUVASTATIN CALCIUM 20 MG TAB PO SCH (09:00)
[2022-01-14] MEDS ORDERED: ISOSORBIDE MONO EXTENDED REL 60 MG TABCR PO SCH ×2 (09:00)
[2022-01-14] MEDS ORDERED: CLOPIDOGREL BISULFATE 75 MG TAB PO SCH (09:00)
[2022-01-14] MEDS ORDERED: TRIAMTERENE/HCTZ 37.5/25MG CAP PO SCH ×2 (09:00)
[2022-01-14] MEDS ORDERED: LEVOTHYROXINE SODIUM 100 MCG TABLET PO SCH (09:00)
[2022-01-14] MEDS ORDERED: ASPIRIN 81 MG CHEW PO SCH ×2 (09:00)
[2022-01-14] MEDS ORDERED: ASPIRIN 81 MG ECTAB PO SCH (09:00)
[2022-01-14] MEDS: ROSUVASTATIN CALCIUM 5 MG TAB PO SCH ×2 (09:59→10:16)
[2022-01-14 11:28] LABS: Estimated Average Glucose 140 mg/dl; Hemoglobin A1C 6.5 % (4.5-5.6)
[2022-01-14 11:39] LABS: iSTAT Blood Urea Nitrogen 13 mg/dl (7-18); iSTAT Carbon Dioxide 25 mmol/L (24-31); iSTAT Chloride 101 mmol/L (101-112); iSTAT Creatinine 0.7 mg/dl (0.6-1.3); iSTAT Glucose 110 mg/dl (70-99); iSTAT Hematocrit 36 % (37-47); iSTAT Hemoglobin 12.2 g/dl (12.0-16.0); iSTAT Potassium 3.9 mmol/L (3.3-5.0); iSTAT Sodium 140 mmol/L (135-144)
[2022-01-14] MEDS ORDERED: STROKE PATIENT DISCHARGE STA (13:00)
--- NOTE | 2022-01-14 13:06 | Discharge Summary ---
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 At approximately 630 this morning when patient woke up she noticed she had blurry vision in her left eye. She thought maybe something was wrong with her contact. She proceeded to go to work and at approximately 7 48-7 40 5 AM she felt a popping sensation in her left ear and left eye and had a transient loss of vision in her left eye and then came back. She described it as, "it went black." She also noted numbness and weakness to the left side of her face, left arm and left leg. She presented to ED approximately 2 hours since symptom onset. Her initial head CT was negative for acute abnormality. A telestroke alert was obtained. Due to patient symptom onset as well as improvement of symptoms the risks and benefits of TNK was offered to the patient. Telemetry neurologist recommended TN K since under 4 and half hours; patient declined. Patient's head and neck CTA was unremarkable. She did undergo brain MRI which revealed no acute intracranial findings. A few small white matter T2 hyperintense foci were noted. In ED patient was loaded with Plavix 300 mg x1 due to her already taking a baby aspirin daily. She was evaluated post MRI in room 206-1. She states her LUE and LLE numbness have resolved but she continues to have numbness to L face. She also complains of blurry vision to L eye. She has removed her contacts. SHe denies any recent illness. She did go to chiropractor on Tuesday. She also was recently started on tamoxifen in August. She denies f/c/s, chest pain, sob, uri sx, cough, n/v/d, abd pain, dizziness, lightheaded, loss of bowel/bladder, change in bowel or urinary habits. She denies change in speech or facial droop or DIAZ. Of note her cardiac history consists of NSTEMI in 2014 during hospitalization for pneumonia. At that time her echocardiogram was normal without regional wall motion abnormality and initially treated conservatively with medications. After resolution of the pneumonia ischemic workup was pursued including cardiac cath by Dr. Yates in 05/2015 demonstrating 100% chronic obtuse marginal 2 stenosis. PCI was attempted but not successful due to the calcified nature of lesion and continued to be treated medically in the interim. Further she underwent exercise stress echocardiogram November 2017 secondary to palpitations and decreased exercise tolerance. It was negative for inducible ischemia after achieving workload of 8 minutes and 40 seconds per Davis protocol. Her last stress echo was in June 2018 which was negative for inducible ischemia. Admission Exam Per Admitting Provider Physical exam, General: Well nourished, well hydrated, +obese, no acute distress and not ill appearing Eyes: PERRL, conjunctivae normal, not pale, anicteric sclerae, EOM intact bilaterally ENMT: External ear and nose normal, oropharynx normal Respiratory: Normal respiratory effort, no respiratory distress, lungs clear to auscultation, no crackles and no wheezes Cardiovascular: RRR S1 S2. No pedal edema. Gastrointestinal (Abdomen): Abdomen is not distended, soft, non-tender to palpation, no guarding, no palpable hepatosplenomegaly, normal bowel sounds Musculoskeletal: No cyanosis or clubbing, Neurologic: PERRL, EOMI, No focal weakness, Power is equal on both sides in all extremities, Reported sensation on left face feels abnormal (dysesthesia) Psychiatric: Alert and oriented x 3, euthymic affect Principal Diagnosis TIA Diabetes, new diagnosis History of hypertension/hyperlipidemia Discharge Exam GENERAL: Alert and oriented x3. NAD, morbid obese. HEENT: No pallor, no icterus. Pupils equal, round and reactive to light. Oral mucosa moist. NECK: No JVD, no neck masses. HEART: S1 and S2 heard. Regular rate and rhythm. No murmur, no gallop. RESPIRATORY SYSTEM: Normal AP diameter. No accessory muscle use. No wheezing, no crackles. ABDOMEN: Soft, bowel sounds present, nontender, no distention. CENTRAL NERVOUS SYSTEM: No facial droop. Speech is clear. Obeys simple commands. Moves extremities. EXTREMITIES: No edema, no erythema seen. Discharge Data Allergies Allergy/AdvReac Type Severity Reaction Status Date / Time latex Allergy Severe swelling Verified 01/13/22 10:31 where ever it touches her codeine Allergy Mild UNKNOWN Verified 01/13/22 10:31 metoprolol Allergy Unknown Fluttering, Verified 01/13/22 10:31 slow respirations, dizziness and dry heaves. oxytocin Allergy Unknown Verified 01/13/22 10:31 Penicillins Allergy Unknown Verified 01/13/22 10:32 Sulfa (Sulfonamide Allergy Unknown . Verified 01/13/22 10:31 Antibiotics) ALL GENERIC MEDS Allergy Unknown LIPS Uncoded 01/13/22 10:31 TONGUE EDEMA Consultations 01/13/22 10:12 Consult Neurology Routine 01/13/22 10:31 ED Decision to Admit Stat Ordered Studies 01/13/22 08:36 CT head/brain wo con Stat 01/13/22 08:40 CT angio head w con Stat CT angio neck with con Stat 01/13/22 09:59 MR brain wo con Stat Hospital Course (1) Stroke-like symptom: (2) Transient visual loss, left eye: (3) CAD (coronary artery disease): (4) HTN (hypertension): (5) HLD (hyperlipidemia): This is a 56-year-old female who has significant past medical history of CAD, HTN, HLD, hypothyroidism, recent dx of 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 She was managed for the following while in hospital: Strokelike symptoms - numbness to L arm/leg, face and visual sx Transient visual loss of left eye Left eye blurred vision New onset diabetes mellitus Symptoms have resolved, patient hemodynamically stable, patient feeling better. Patient to continue with baby aspirin and Plavix for 21 days total, follow-up with her regular home dose of aspirin 162 mg daily lifelong Patient is diagnosed with new onset diabetes, A1c 6.5%, educator senior clinical consulted, patient made aware, options discussed, patient decided to go with lifestyle modification and then follow-up with primary care physician as an outpatient. Get repeat A1c in 3 months and follow-up with primary care physician. CAD, HTN, HLD Continue with other home medications. Recent dx stage 1 breast ca on R s/p partial mastectomy has been on tamoxifen since August Patient being discharged home with following instruction at the point of discharge: Follow-up with your primary care physician within a week time. You have been diagnosed with TIA, neurologist evaluated you while inpatient. Continue with 81 mg aspirin daily and 75 mg Plavix daily for total of 21 days as discussed at the bedside then follow-up with your 162 mg aspirin daily from 22nd day onwards. Follow-up with neurology in 4 to 6 weeks time as an outpatient. You have been diagnosed with diabetes, A1c while in hospital 6.5%, as agreed upon at bedside follow-up with lifestyle modification per educator senior clinical, fo llow-up with primary care physician in 3 months time for further evaluation/necessity for medication. Take medications as prescribed. Total Time Total Time Spent Total Time Spent (In Minutes): 35 Discharge Plan Discharge Items Patient Disposition: Home - Self-Care Reason For Visit: LT TRANSIENT VISUAL LOSS Discharge Diagnosis: TIA Diabetes, new diagnosis History of hypertension/hyperlipidemia Condition on Discharge: Fair Activity: Resume your previous activity Non-emergency contact: Primary Care Provider Call non-emergency contact if: you have any medication questions, your symptoms worsen and your temperature is above 101 Follow-up/Referrals: Katarzyna Springer PA-C [Physician Locomotive Oiler] - (Date & Time 02/11/2022 11:20 AM Provider Katarzyna Springer PA-C Department Neurology [facility] ) Tona Lomeli PA-C [Primary Care Provider] - Anum Sow PA-C [Outside Practitioners] - (Date & Time 01/20/2022 2:00 PM Provider Anum Sow PA-C Department Family Practice [facility] ) Diet: Carb Consistent or DM2 and Heart Healthy Addtl Attending Provider Instructions: Follow-up with your primary care physician within a week time. You have been diagnosed with TIA, neurologist evaluated you while inpatient. Continue with 81 mg aspirin daily and 75 mg Plavix daily for total of 21 days as discussed at the bedside then follow-up with your 162 mg aspirin daily from 22nd day onwards. Follow-up with neurology in 4 to 6 weeks time as an outpatient. You have been diagnosed with diabetes, A1c while in hospital 6.5%, as agreed upon at bedside follow-up with lifestyle modification per educator senior clinical, follow-up with primary care physician in 3 months time for further evaluation/necessity for medication. Take medications as prescribed. Pending Studies at Discharge: No Stand-Alone Forms: [facility] [employer], Smoking Cessation Medications and DC Order Prescriptions: New clopidogrel 75 mg Tablet 75 mg PO QAM 20 Days Qty: 20 RF: 0 aspirin 81 mg Tablet,Delayed Release (Dr/Ec) 81 mg PO DAILY 20 Days Qty: 20 RF: 0 Continued potassium chloride 10 mEq Capsule, Extended Release 30 meq PO DAILY@1500 RF: 0 triamterene-hydrochlorothiazid 37.5-25 mg Capsule 1 cap PO DAILY RF: 0 levothyroxine 100 mcg Tablet 100 mcg PO QAM RF: 0 isosorbide mononitrate 60 mg Tablet Extended Release 24 Hr 60 mg PO QAM RF: 0 metoprolol succinate 25 mg tablet extended release 24 hr 25 mg PO DAILY@1500 RF: 0 tamoxifen 20 mg tablet 20 mg PO DAILY@1999 RF: 0 rosuvastatin 5 mg tablet 20 mg PO DAILY RF: 0 Discontinued aspirin 81 mg Tablet,Chewable 162 mg PO DAILY RF: 0 Discharge Orders: Discharge Order (Routine); Ordered 01/14/22 Ordered By: Alon Reece Admission Data Admit Date/Time: 01/13/22 10:12 Attending Provider: Alon Reece Admit Provider: Noemy Johnston I. Primary Care Provider: Tona Lomeli Other Providers: Saul Menendez ; Noemy Johnston I.
--- NOTE | 2022-01-14 14:28 | Pharmacy Report ---
Pharmacist Stroke Counseling - Date of Service January 14, 2022 - Scope: Pharmacy has been consulted to provide medication discharge counseling for this patient admitted with possible stroke as per the Pharmacist Discharge Counseling for Stroke Patients Protocol. - Medications on Discharge: Home Medications Medication Instructions Recorded Confirmed isosorbide mononitrate 60 mg 60 mg PO QAM 07/19/18 01/13/22 tablet,extended release 24 hr levothyroxine 100 mcg tablet 100 mcg PO QAM 07/19/18 01/13/22 metoprolol succinate 25 mg 25 mg PO DAILY@1500 07/19/18 01/13/22 tablet,extended release 24 hr potassium chloride 10 mEq 30 meq PO DAILY@1500 07/19/18 01/13/22 capsule,extended release triamterene 37.5 1 cap PO DAILY 07/19/18 01/13/22 mg-hydrochlorothiazide 25 mg capsule rosuvastatin 5 mg tablet 20 mg PO DAILY 01/13/22 01/13/22 tamoxifen 20 mg tablet 20 mg PO DAILY@199901/13/22 01/13/22 New Rx's Medication Instructions Recorded aspirin 81 mg tablet,delayed 81 mg PO DAILY 20 Days #20 tab 01/14/22 release clopidogrel 75 mg tablet 75 mg PO QAM 20 Days #20 tab 01/14/22 - Action: The above medications, specifically ones for stroke treatment/prophylaxis, have been reviewed in detail with the patient. This includes indication, common adverse reactions, drug interactions, and medication administration. Medication counseling has been employed using the teach-back method to ensure understanding. - Outcome: The patient has demonstrated understanding of the medications. Additional comments: Spoke to patient in the hospital room today for discharge counseling. She was very pleasant and receptive to counseling. Reviewed new medications to prevent stroke including Aspirin 81 mg and Plavix 75 mg for 21 days total only, and continuing Crestor 20 mg daily. Also explained to take stop Clopidogrel and resume ASA 162mg after the 21 days. Explained to patient to avoid Prilosec while on Plavix due to drug interaction. Discussed why they are being used and common side effects in great detail. Reviewed how to use the medications, what to do if doses are missed, common drug interactions, common side effects, what to watch out for while using the medications. Pt verbalized understanding and restated the marroquin points of each medication. Thank you for allowing pharmacy to be involved in the care of this patient. Please call [phone] with any additional questions
== END 2022-01-14 14:30 | disposition home or self-care (01) ==
LOC: 2E 08:20 → ED 08:20 → SUATTDRO 10:12 → 2E 11:44